=== PATIENT | male | born 1955 | race Caucasian/White ===

== ENCOUNTER 2023-12-21 14:45 | Emergency (ER) | payer MEDICARE ==
[2023-12-21] MEDS ORDERED: diphenhydrAMINE 50 MG/ML VIAL ONE (15:21)
[2023-12-21] MEDS ORDERED: Metoclopramide HCl 10 MG (2 mL) VIAL ONE (15:22)
== END 2023-12-21 16:36 | disposition home or self-care (01) ==
LOC: BURERS 14:45
DX: G44.009 Cluster headache syndrome, unspecified, not intractable (principal); I10 Essential (primary) hypertension
CPT/HCPCS: J1200; J2765; 96374; 96375